=== PATIENT | female | born 1965 | race Caucasian/White ===

== ENCOUNTER → 2020-06-13 | Outpatient (CLI) | payer MEDICARE, OTHER ==
[~2020-06-13] MED LIST: ABILIFY 5 MG TAB5 MG PO; ADVAIR 250-501 EACH INH; BUDESONIDE0.5 MG/2 M NEB; CRESTOR20 MG PO; HYDROCHLOROTHIA25 MG PO; IPRAT-ALBUT 0.5-3 ML NEB; LASIX20 MG PO; MELOXICAM15 MG PO; METFORMIN HCL1000 MG PO; METOPROLOL SUCC25 MG PO; MILLIPRED5 MG PO; PAROXETINE HCL40 MG PO; SPIRIVA HANDIH18 MCG INH; SUBOXONE 8 MG-1 EACH SL; VENTOLIN HFA 66.7 GM INH; ZESTRIL 40 MG T40 MG PO
== END ==
LOC: KOH-I 11:22
DX: R22.43 Localized swelling, mass and lump, lower limb, bilateral (principal)
CPT/HCPCS: 93970

== ENCOUNTER 2020-06-21 15:11 | Inpatient (IN) | payer MEDICARE, OTHER ==
[~2020-06-21] VITALS: Ht 170.2 cm; Wt 103.0 kg
[2020-06-21 16:13] LABS: HEMOGLOBIN 13.1 gm/dl (12.3-15.3); RED BLOOD COUNT 4.43 M/UL (4.00-5.10); WHITE BLOOD COUNT 9.7 K/UL (4.5-11.0)
[2020-06-21 16:35] LABS: BUN/CREATININE RATIO 21 (0-10)
[2020-06-21] MEDS ORDERED: VENTOLIN HFA 66.7 GM INH (19:40)
[2020-06-21] MEDS ORDERED: SUBOXONE 8 MG-1 EACH SL (19:40)
[2020-06-21] MEDS ORDERED: ZESTRIL 40 MG T40 MG PO (19:41)
[2020-06-21] MEDS ORDERED: HYDROCHLOROTHIA25 MG PO (19:41)
[2020-06-21] MEDS ORDERED: ABILIFY 5 MG TAB5 MG PO (19:42)
[2020-06-21] MEDS ORDERED: PAROXETINE HCL40 MG PO (19:42)
[2020-06-21] MEDS ORDERED: CRESTOR20 MG PO (19:42)
[2020-06-21] MEDS ORDERED: METFORMIN HCL1000 MG PO (19:44)
[2020-06-21] MEDS ORDERED: METOPROLOL SUCC25 MG PO (19:44)
[2020-06-21] MEDS ORDERED: MELOXICAM15 MG PO (19:44)
[2020-06-21] MEDS ORDERED: LASIX20 MG PO (19:45)
[2020-06-22 03:48] LABS: HEMOGLOBIN 13.3 gm/dl (12.3-15.3); RED BLOOD COUNT 4.58 M/UL (4.00-5.10); WHITE BLOOD COUNT 8.7 K/UL (4.5-11.0)
[2020-06-22 03:52] LABS: BUN/CREATININE RATIO 22 (0-10)
[2020-06-23 03:52] LABS: HEMOGLOBIN 12.7 gm/dl (12.3-15.3); RED BLOOD COUNT 4.38 M/UL (4.00-5.10)
[2020-06-23 04:01] LABS: WHITE BLOOD COUNT 12.9 K/UL (4.5-11.0)
[2020-06-23 04:20] LABS: BUN/CREATININE RATIO 34 (0-10)
--- NOTE | 2020-06-23 16:32 | NUR ---
Notified Dr. Gonzalez @ [phone] about 25 beat run of SVT and pts HR reaching 160s. He just ensured I had put in the CT with PE protocol and there are no new orders at this time.
[2020-06-24 03:36] LABS: RED BLOOD COUNT 4.51 M/UL (4.00-5.10); WHITE BLOOD COUNT 9.7 K/UL (4.5-11.0)
[2020-06-24 03:52] LABS: BUN/CREATININE RATIO 32 (0-10)
[2020-06-24] MEDS ORDERED: HYDROCHLOROTHIA25 MG PO (13:13)
[2020-06-24] MEDS ORDERED: BUDESONIDE0.5 MG/2 M NEB (13:13)
[2020-06-24] MEDS ORDERED: SPIRIVA HANDIH18 MCG INH (13:13)
[2020-06-24] MEDS ORDERED: ADVAIR 250-501 EACH INH (13:13)
[2020-06-24] MEDS ORDERED: IPRAT-ALBUT 0.5-3 ML NEB (13:13)
[2020-06-24] MEDS ORDERED: MILLIPRED5 MG PO (13:24)
== END 2020-06-24 13:02 | disposition home or self-care (01) | DRG 189 ==
LOC: ER1 15:11 → CDU 17:26 → MED SURG 4 17:26
PROVIDERS: Family Medicine; Physician Assistant; ADMIT Internal Medicine
DX: J96.01 Acute respiratory failure with hypoxia (principal); J44.1 Chronic obstructive pulmonary disease with (acute) exacerbation; F17.210 Nicotine dependence, cigarettes, uncomplicated; Z20.822 Contact with and (suspected) exposure to COVID-19; I10 Essential (primary) hypertension; E11.9 Type 2 diabetes mellitus without complications; E78.5 Hyperlipidemia, unspecified; Z85.3 Personal history of malignant neoplasm of breast
CPT/HCPCS: 36415; 36600; 71045; 80048; 80053; 82550; 82553; 82803; 83036; 83605; 83735; 84484; 85025; 85610; 87040; 93005; 94640; 94664; 94760; 96374; 99285; J1650; J2930; Q9967; U0002

== ENCOUNTER → 2020-09-05 | Outpatient (CLI) | payer MEDICARE, OTHER | LOC: HEART 5 10:47 | DX: J44.9 Chronic obstructive pulmonary disease, unspecified (principal) | CPT/HCPCS: 94060; 94729 ==

== ENCOUNTER → 2020-09-25 | Outpatient (CLI) | payer MEDICARE, OTHER | LOC: RT 14:34 | DX: R09.02 Hypoxemia (principal) | CPT/HCPCS: 36600; 82803 ==

== ENCOUNTER → 2020-10-17 | Outpatient (CLI) | payer MEDICARE, OTHER | LOC: KOH-I 11:00 | DX: F17.210 Nicotine dependence, cigarettes, uncomplicated (principal) | CPT/HCPCS: 71271 ==

== ENCOUNTER → 2021-06-01 | Outpatient (CLI) | payer MEDICARE, OTHER ==
[~2021-06-01] MED LIST changes: +AMARYL2 MG PO; +BREO ELLIPTA 11 EACH INH; +CYANOCOBAL1000 MCG/1 INJ; +HYDROXYZINE HCL25 MG PO; +IPRAT-ALBUT 0.5-3 ML PO; +LOPRESSOR 25 MG25 MG PO; +LOW DOSE ASPIRI81 MG PO; +NARCAN4 MG; +NITROSTAT 0.40.4 MG SL; +POTASSIUM CHLO10 ME1 PO; +PROVENTIL HFA6.7 GM INH; +TYLOPHEN500 MG PO; +VITAMIN D21250 MCG PO
[2021-06-01 12:58] LABS: HEMOGLOBIN 14.4 gm/dl (12.3-15.3); RED BLOOD COUNT 4.74 M/UL (4.00-5.10); WHITE BLOOD COUNT 8.2 K/UL (4.5-11.0)
[2021-06-01 13:18] LABS: BUN/CREATININE RATIO 18 (0-10)
== END ==
LOC: OPSV2 05-27 10:00
PROVIDERS: Obstetrics & Gynecology
DX: Z01.818 Encounter for other preprocedural examination (principal); N95.0 Postmenopausal bleeding; R91.8 Other nonspecific abnormal finding of lung field
CPT/HCPCS: 36415; 71046; 80053; 81001; 85025; 93005; U0003

== ENCOUNTER → 2021-06-04 | Day surgery (SDC) | payer MEDICARE, OTHER | END | disposition home or self-care (01) | LOC: OR 07:26 | DX: N84.0 Polyp of corpus uteri (principal); N95.0 Postmenopausal bleeding; E78.2 Mixed hyperlipidemia; E11.9 Type 2 diabetes mellitus without complications; F17.210 Nicotine dependence, cigarettes, uncomplicated; J44.9 Chronic obstructive pulmonary disease, unspecified; I10 Essential (primary) hypertension; F43.12 Post-traumatic stress disorder, chronic; Z79.84 Long term (current) use of oral hypoglycemic drugs; Z98.51 Tubal ligation status; Z88.0 Allergy status to penicillin; Z79.82 Long term (current) use of aspirin; Z20.822 Contact with and (suspected) exposure to COVID-19 | CPT/HCPCS: 82962; J1100; J1885; J2001; J2250; J2405; J2704; J2795; J3010; J7030; J7120 ==

== ENCOUNTER 2021-11-13 17:02 | Emergency (ER) | payer MEDICARE, OTHER | END 2021-11-13 22:20 | disposition left against medical advice (07) | LOC: ER1 17:02 | DX: Z53.21 Procedure and treatment not carried out due to patient leaving prior to being seen by health care provider (principal) ==

== ENCOUNTER → 2021-11-18 | Outpatient (CLI) | payer MEDICARE, OTHER | LOC: KOH-I 14:41 | DX: L03.115 Cellulitis of right lower limb (principal); M79.89 Other specified soft tissue disorders | CPT/HCPCS: 73590 ==

== ENCOUNTER → 2021-11-19 | Outpatient (CLI) | payer MEDICARE, OTHER | LOC: US 08:23 | DX: M79.89 Other specified soft tissue disorders (principal) | CPT/HCPCS: 93971 ==